=== PATIENT | female | born 1965 | race African-American/Black ===

== ENCOUNTER 2016-06-02 21:55 | Emergency (ER) ==
[2016-06-02 22:33] LABS: URINE CULTURE PL NEEDED? NO; URINE SOURCE CLEAN CATCH
[2016-06-02 22:39] LABS: BILIRUBIN URINE NEGATIVE (NEGATIVE); BLOOD URINE NEGATIVE (NEGATIVE); CLARITY CLEAR (CLEAR); COLOR YELLOW; GLUCOSE URINE NEGATIVE (NEGATIVE); LEUKOCYTES URINE NEGATIVE (NEGATIVE); NITRITE URINE NEGATIVE (NEGATIVE); PROTEIN URINE NEGATIVE (NEGATIVE); SP GRAVITY URINE 1.015; UROBILINOGEN URINE NORMAL
[2016-06-02 22:53] LABS: URINE EPITHELIAL CELLS <10 /HPF (<10)
--- NOTE | 2016-06-03 00:03 | PROVIDER DOCUMENTATION ---
HPI-Abdominal Pain/GI Problem - General Chief Complaint: Abdominal Pain Stated Complaint: LOWER PAIN IN ABD Time Seen by Provider: 06/02/16 23:32 Source: patient Allergies/Adverse Reactions: Patient Allergies Allergy/AdvReac Type Severity Reaction Status Date / Time No Known Allergies Allergy Verified 06/02/16 22:02 Home Medications: Home Medication List Medication Instructions Recorded Confirmed Last Taken Type Lisinopril/Hydrochlorothiazide 1 tab PO BID 01/08/15 04/21/16 06/02/16 History [Lisinopril-Hctz 20-25 mg Tab] Verapamil [Isoptin] 120 mg PO TID 04/21/16 04/21/16 06/02/16 History Buspirone [Buspar] 1 tab PO BID 06/02/16 06/02/16 06/02/16 History Dicyclomine [Bentyl] 10 mg PO AC + HS #30 capsule 06/03/16 Unknown Rx Docusate Sodium [Colace] 100 mg PO BID PRN PRN #20 capsule 06/03/16 Unknown Rx Polyethylene Glycol 3350 [Miralax] 17 gm PO DAILY #30 powd.pack 06/03/16 Unknown Rx - History of Present Illness-ABD Nature of Presenting Problems: 50 y/o F c/o abd. pain, bladder pressure x 1 week. Pt states hx of constipation and states hasn't had BM in one week. Reports took mag citrate this AM and had 6 BM, but states abd. pain persists, mostly in LLQ, but all over. Denies any N/V, fever/chills, dysuria. Review of Systems - Adult - REVIEW OF SYSTEMS - ADULT Constitutional: reports: no symptoms reported. denies: chills, fever Eyes: reports: no symptoms reported. denies: blurred vision, double vision Ears, Nose, Mouth & Throat: reports: no symptoms reported. denies: ear pain, nose pain Cardiovascular: reports: no symptoms reported. denies: chest pain, palpitations Respiratory: reports: no symptoms reported. denies: dyspnea on exertion, shortness of breath Gastrointestinal: reports: see HPI, abdominal pain, constipation. denies: diarrhea, nausea, vomiting Genitourinary: reports: see HPI. denies: dysuria, frequency Musculoskeletal: reports: no symptoms reported. denies: joint pain, joint swelling Integumentary: reports: no symptoms reported. denies: nail changes, rash Neurological: reports: no symptoms reported. denies: numbness, paresthesia Psychiatric: reports: no symptoms reported Endocrine: reports: no symptoms reported. denies: cold intolerance, heat intolerance Hematologic/Lymphatic: reports: no symptoms reported. denies: easy bruising, prolonged bleeding Allergic/Immunologic: reports: no symptoms reported All Other Systems: Reviewed and Negative Past History - Adult - PAST MEDICAL HISTORY-ADULT Review of Records: reports: Nursing Assessment Review, Medications Reviewed Major Childhood Illnesses: reports: denies history Cardiovascular: reports: HTN Respiratory: reports: denies history Gastrointestinal: reports: denies history Obstetrical/Gynecological: reports: denies history Genitourinary: reports: denies history Musculoskeletal: reports: denies history Neurological: reports: denies history Psychiatric: reports: anxiety Endocrine/Immune: reports: denies history Other Conditions: reports: denies history - IMMUNIZATION STATUS Childhood Immunizations: See Nurse Assessment Flu Vaccine: See Nurse Assessment - FAMILY HISTORY Family History: reviewed, not pertinent - SOCIAL HISTORY Smoking: denies Physical Exam-General - PHYSICAL EXAM-ADULT Initial Vital Signs Reviewed: Yes - CONSTITUTIONAL General Appearance: alert, mild distress, obese - EYES Eyes: pink conjunctivae - HEAD, EARS, NOSE, MOUTH & THROAT HENMT: normocephalic/atraumatic - NECK Neck: normal inspection - RESPIRATORY Respiratory: lungs clear, normal breath sounds. negative: crackles - CARDIOVASCULAR Cardiovascular: regular rate, rhythm. negative: bradycardia, tachycardia - GASTROINTESTINAL (ABDOMEN) Abdominal Exam: normal bowel sounds, soft, tenderness (generalized). negative: distended, guarding, rigid - MUSCULOSKELETAL Back Exam: no CVA tenderness Extremity: normal gait - SKIN Integumentary: normal color, normal turgor, warm/dry - NEUROLOGIC Neurologic: negative: aphasia - PSYCHIATRIC Psych/Mental Status: normal mood/affect, normal thought content, normal thought process, oriented x 3 Progress - PLAN OF CARE/RESULTS Progress/Plan/Lab Results: Laboratory Tests 06/02/16 22:15 Urine Source CLEAN CATCH Urine Color YELLOW Urine Clarity CLEAR Urine pH 6.0 Ur Specific [place] 1.015 Urine Protein NEGATIVE Urine Ketones NEGATIVE Urine Blood NEGATIVE Urine Nitrite NEGATIVE Urine Bilirubin NEGATIVE Urine Urobilinogen NORMAL Urine Microscopic RBC Not Reportable Urine WBC NEGATIVE Ur Epithelial Cells <10 Urine Bacteria 1+ Urine Glucose NEGATIVE Orders Category Date Time Status FLAT/UPRIGHT ABD/1 VIEW CHEST [RAD] Stat Exams 06/03/16 00:00 Completed UA [URINALYSIS PL W/POSS RFLX CULT] [URINALYSIS] Stat Lab 06/02/16 22:15 Completed Acetaminophen [Tylenol] Med 06/03/16 00:55 Discontinued 650 mg .ROUTE .STK-MED ONE Acetaminophen [Tylenol] Med 06/03/16 01:00 Discontinued 650 mg PO NOW ONE Lactulose Med 06/03/16 00:38 Discontinued 30 ml PO NOW ONE Vital Signs Temp Pulse Resp BP Pulse Ox 06/03/16 01:00 101.4 F H 90 20 147/93 100 06/02/16 22:04 98.3 F 81 18 144/75 100 No Known Allergies Allergy (Verified 06/02/16 22:02) Lisinopril/Hydrochlorothiazide [Lisinopril-Hctz 20-25 mg Tab] 1 tab PO BID 01/08 Verapamil [Isoptin] 120 mg PO TID 04/21/16 Buspirone [Buspar] 1 tab PO BID 06/02/16 Dicyclomine [Bentyl] 10 mg PO AC + HS #30 capsule 06/03/16 Docusate Sodium [Colace] 100 mg PO BID PRN PRN #20 capsule 06/03/16 Polyethylene Glycol 3350 [Miralax] 17 gm PO DAILY #30 powd.pack 06/03/16 OBESITY, UNSPECIFIED (06/02/16) ANXIETY DISORDER, UNSPECIFIED (06/02/16) ESSENTIAL (PRIMARY) HYPERTENSION (06/02/16) CONSTIPATION, UNSPECIFIED (06/02/16) LOWER ABDOMINAL PAIN, UNSPECIFIED (06/02/16) GENERALIZED ABDOMINAL PAIN (06/02/16) 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 Bautista; he suggested lactulose for constipation. - XRAY 1 XRAY Study: Chest, Abdomen XRAY Interpretation: constipation in ascending colon; no acute findings Departure - Departure Time of Disposition Order: 00:39 DIAGNOSIS: Constipation Qualifiers: Constipation type: unspecified constipation type Qualified Code(s): K59.00 - Constipation, unspecified Disposition: HOME 01 Certified Medical Emergency: Emergent Condition: Stable Additional Instructions: Take medications as directed. Follow up with PCP for further management. Drink plenty of fluids. ED Follow Up Instructions: You have been treated by a care provider in the Emergency Department. These instructions are being provided to you so you can have an understanding of how to care for yourself upon discharge. Upon discharge from the Emergency Department, you are responsible for making arrangements for follow-up care by a physician of your choice. Take all prescribed medications as directed. Return to the Emergency Department immediately for any new or worsening symptoms. You may call the Physician Referral phone number at [phone] to obtain a list of Physicians who are taking new patients. Prescriptions: Dicyclomine [Bentyl] 10 mg PO AC + HS #30 capsule Docusate Sodium [Colace] 100 mg PO BID PRN PRN #20 capsule PRN Reason: Constipation Polyethylene Glycol 3350 [Miralax] 17 gm PO DAILY #30 powd.pack Referrals: Jose Negron MD [STAFF PHYSICIAN] - None,PCP [Primary Care Provider] - Forms: Return to School/Parent Work Instructions: Docusate Sodium; Senna tablets, Dicyclomine tablets or capsules, Constipation, Adult, [id number], Polyethylene Glycol powder Attestation - Physician/ ILIANA Attestation Patient care was provided by Advanced Practice Provider:: Yes Advanced Practice Provider:: Nadine Cabrera Advanced Practice Provider documentation review:: The Mid-level provider documentation, treatment plan and medical decision making was reviewed by the physician who agrees with all treatment and medical decision making by the MLP.
[2016-06-03] MEDS ORDERED: LACTULOSE PO ONE (00:38)
[2016-06-03] MEDS ORDERED: TYLENOL ONE (00:55)
[2016-06-03] MEDS ORDERED: TYLENOL PO ONE (01:00)
[2016-06-03 01:01] VITALS: BP 147/93
--- NOTE | 2016-06-03 09:30 | Diag Imaging Result Document ---
PROCEDURE NAME: FLAT/UPRIGHT ABD/1 VIEW CHEST - 06/03/2016 FLAT AND UPRIGHT ABDOMEN: FINDINGS: There is some stool in the ascending colon. The stomach and small bowel are not distended. There is no evidence of organomegaly or mass. There are phleboliths in the pelvis. IMPRESSION: Constipation. PA CHEST: FINDINGS: There is a calcification in the left hilum. There is no evidence of acute pulmonary disease and the heart and pulmonary vascularity are within normal limits. Compared to 02/19/2015, there has been no significant change in the appearance of the chest. IMPRESSION: No evidence of acute disease.
== END 2016-06-03 01:01 | disposition home or self-care (01) ==
LOC: P.ED 21:55
DX: K59.00 Constipation, unspecified (principal); R10.84 Generalized abdominal pain; I10 Essential (primary) hypertension; F41.9 Anxiety disorder, unspecified; E66.9 Obesity, unspecified; Z79.899 Other long term (current) drug therapy
CPT/HCPCS: 74022; 81001; 99284